=== PATIENT | female | born 2000 | race Two or more races ===

== ENCOUNTER → 2022-06-22 | Outpatient (CLI) | payer OTHER | END | disposition home or self-care (01) | LOC: NST 16:10 | PROVIDERS: ATTEND Obstetrics & Gynecology Gynecology | DX: Z34.83 Encounter for supervision of other normal pregnancy, third trimester (principal) ==

== ENCOUNTER 2022-07-06 10:51 | Outpatient (CLI) | payer OTHER ==
[2022-07-06] MEDS ORDERED: PRENATAL CAPLE1 EAC1 (19:23)
== END 2022-07-06 11:14 | disposition home or self-care (01) ==
LOC: NST 10:51
PROVIDERS: ATTEND Obstetrics & Gynecology Gynecology
DX: Z34.83 Encounter for supervision of other normal pregnancy, third trimester (principal)

== ENCOUNTER 2022-07-06 17:28 | Inpatient (IN) | payer OTHER ==
[~2022-07-06] VITALS: Ht 157.5 cm; Wt 60.8 kg
[2022-07-06] MEDS ORDERED: PRENATAL CAPLE1 EAC1 (19:23)
== END 2022-07-09 13:56 | disposition home or self-care (01) | DRG 807 ==
LOC: LDR 17:28 → OB/GYN 07-07 13:08
PROVIDERS: ADMIT Obstetrics & Gynecology; ATTEND Obstetrics & Gynecology
PROC: 4A1HXCZ Monitoring of Products of Conception, Cardiac Rate, External Approach (ICD-10-PCS; 2022-07-06)
PROC: 10E0XZZ Delivery of Products of Conception, External Approach (ICD-10-PCS; principal; 2022-07-07)
PROC: 0UQG7ZZ Repair Vagina, Via Natural or Artificial Opening (ICD-10-PCS; 2022-07-07)
DX: O71.4 Obstetric high vaginal laceration alone (principal); Z37.0 Single live birth; Z3A.37 37 weeks gestation of pregnancy; Z20.822 Contact with and (suspected) exposure to COVID-19